=== PATIENT | male | born 1965 ===

== ENCOUNTER 2017-10-13 06:48 | Day surgery (SDC) | payer BC ==
[2017-09-08 09:07] VITALS: BMI 28.8
[2017-10-13] MEDS ORDERED: EPINEPHrine 1:1000 Nasal Sol(30mL) ONE (09:04)
[2017-10-13] MEDS ORDERED: Midazolam 2 MG/2 ML VIAL ONE (10:08)
[2017-10-13] MEDS ORDERED: Propofol 10 mg/ml Inj (20 ML) ONE (10:08)
[2017-10-13] MEDS ORDERED: Lidocaine Hydrochloride 5 ML INJ ONE (10:12)
[2017-10-13] MEDS: ceFAZolin 1 gm in NS 2 GM/200 ML BAG IVPB ONE ×2 (10:21→10:55)
[2017-10-13] MEDS ORDERED: Neostigmine Methylsulfate 3mg/3ml Syringe IV ONE (12:50)
[2017-10-13] MEDS: HYDROmorphone 0.5 mg/0.5 ml ISec IVP PRN ×5 (13:13→14:42)
[2017-10-13] MEDS ORDERED: HYDROmorphone 1 mg/ml ISec IVP STA (13:15)
[2017-10-13] MEDS ORDERED: Lactated Ringer's 1,000 ML IV ONE ×2 (13:18)
[2017-10-13] MEDS ORDERED: Bupivacaine HCl 0.25% PF (30 ml) Inj ONE (13:24)
--- NOTE | 2017-10-13 13:55 | PCM.ANESB7 ---
Adductor Canal Block - Adductor Canal Block Date of Procedure: 10/13/17 Anesthiologist: Pre-Procedure Diagnosis: right mesicinous tear Post-Procedure Diagnosis: right knee arthroscopy with mesicinous tear repair Procedure Performed: Adductor Canal Block Right - Procedure Adductor Canal Block: The procedure was explained to the patient that it is for the post-operative pain management. Consent was obtained after a thorough discussion with the patient regarding the benefits and possible complications of local anesthetic adductor canal block of the femoral nerve. Standard monitors, as defined by the ASA, were applied to the patient. Time-out was held with the circulating nurse to confirm the appropriate block. After applying supplemental oxygen and administering IV Sedation as needed, the patient was placed in supine position with and the operative leg was flexed slightly at the knee and externally rotated as needed, and was kept anatomically stable. The mid-thigh of the _ right lower extremity was exposed. The ultrasound transducer was then applied transversely along the medial aspect, about midway down the thigh and the femoral artery and vein were identified in appropriate relation with the sartorius muscle. At this time, the femoral nerve was visualized lateral to the femoral artery within the canal. After thorough identification, this area area was prepped with Chloroprep solution three times and 1 % Lidocaine was injected subcutaneously for topical anesthesia. At this point, a #22 gauge Stimuplex 4-inch needle was inserted in-plane in a [id number] orientation, and advanced toward the femoral nerve. Advancement was performed carefully under direct ultrasound visualization. Nerve stimulator was used and appropriate muscle twitch was obtained at current of MA. After negative aspiration, __25___cc of _.25____% ___bupivacaine____ was injected and this was followed with cc of % ____ . Under ultrasound guidance the local anesthetics were observed spreading around the femoral nerve. The needle was removed intact and sterile dressing was applied. The patient had stable vital signs, was conscious and in no apparent distress. The patient tolerated the femoral nerve block well with stable vital signs and was prepared for subsequent surgery
[2017-10-13 16:25] VITALS: RESP 18
[2017-10-13 17:26] VITALS: BP 122/67; PULSE 79; TEMP 97.6; O2SAT 98
--- NOTE | 2017-10-18 19:26 | PCM.SURG1 ---
Surgeon's Initial Post Op Note - Surgeon's Notes Surgeon: Florin De León MD [employer] Farmworker: Merna Escalante PA-C Type of Anesthesia: General Endo Pre-Operative Diagnosis: Right knee. #1 medial meniscal tear. #2 lateral meniscal tear. #3 chondromalacia. #4 synovitis. #5 hypertrophic/inflammed fat pad. #6 symptomatic medial plica band Operative Findings: Right knee. #1 medial meniscal tear (peripheral red-red zone tear). #2 lateral meniscal tear (large anterior horn flap tear/ hypermobility posterior horn). 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 #4 synovitis all 3 compartments. #5 hypertrophic/inflammed fat pad casuing impingement. #6 symptomatic medial plica band Post-Operative Diagnosis: Right knee. #1 medial meniscal tear (peripheral red- red zone tear). #2 lateral meniscal tear (large anterior horn flap tear/ hypermobility posterior horn). 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 #4 synovitis all 3 compartments. #5 hypertrophic/inflammed fat pad casuing impingement. #6 symptomatic medial plica band Operation Performed: Right knee arthroscopic: #1 all inside medial meniscal repair. #2 partial lateral menisectomy w/ stabilization posterior horn. #3 microfracture full thickness focal cartilage defects MFC/lateral plateau/ trochlea. #4 extensive synovectomy (including resection symptomatic plica band / resection hypertrophic fat pad). #5 chondroplasty patella. #6 PRP intra- articular injection Specimen/Specimens Removed: specimen= none. complications= none. tourniquet time= 0min. implants = [employer] all inside meniscal repair system, 8 implants for all inside medial meniscal repair (2 kits), 12 implants for lateral meniscus stabilization (4 kits opened) Estimated Blood Loss: EBL {In ML}: 3 Blood Products Given: N/A Drains Used: No Drains Post-Op Condition: Good Date of Surgery/Procedure: 10/13/17 Time of Surgery/Procedure: 13:00
--- NOTE | 2017-10-23 04:01 | OP ---
PROCEDURE DATE: 10/13/2017 PREOPERATIVE DIAGNOSES: Right knee: 1. Medial meniscal tear. 2. Lateral meniscus tear. 3. Chondromalacia. 4. Synovitis. 5. Hypertrophic/inflamed fat pad. 6. Symptomatic medial plica band. POSTOPERATIVE DIAGNOSES: Right knee: 1. Medial meniscal tear (peripheral red-red zone tear). 2. Lateral meniscus tear (large anterior horn flap tear, irreparable/hypermobility of posterior horn/peripheral tear). 3. Chondromalacia with grade 4 focal cartilage loss medial femoral condyle measuring 3 mm x 12 mm/lateral tibial plateau defect measuring 6 mm x 6 mm/trochlea defect measuring 2 mm x 9 mm). 4. Synovitis, all 3 compartments. 5. Hypertrophic/inflamed fat pad causing impingement. 6. Symptomatic medial plica band. PROCEDURES: Right knee arthroscopic: 1. All-inside medial meniscus repair. 2. Partial lateral meniscectomy with stabilization of posterior horn. 3. Microfracture full thickness focal cartilage defects, medial femoral condyle/lateral tibial plateau/trochlea. 4. Extensive synovectomy of all 3 compartments (including resection of symptomatic plica band/resection and debridement of hypertrophic fat pad causing impingement/synovectomy). 5. Chondroplasty patella. 6. Intra-articular PRP injection. SURGEON: Florin Thompson MD MANAGER RAIL: Merna Escalante PA-C JUSTIFICATION FOR MANAGER RAIL: Merna Escalante is a certified physician clinical assistant whose skilled surgical services was an absolute necessity for successful completion of the procedure as he provided skilled surgical assistance with positioning of the patient, positioning of extremity, management of the surgical bridges, retraction of the neurovascular structures, facilitating all-inside medial meniscus repair, facilitating all-inside stabilization of lateral meniscus, facilitating microfracture hole placement and debridement, handling of arthroscopic equipment and synovectomy chondroplasty, wound closure, fitting and placement of postop hinge knee brace. Merna Escalante was present for the entire case and was an absolute necessity for the successful completion of the procedure. TYPE OF ANESTHESIA: General endotracheal anesthesia with a postop regional nerve block placed by anesthesia staff in PACU. SPECIMENS: None. COMPLICATIONS: None. TOURNIQUET TIME: Zero minute. IMPLANTS: [employer] all-inside meniscal repair system with placement of 8 implants for all-inside medial meniscus repair (2 kits), 12 implants for lateral meniscus stabilization (4 kits). ESTIMATED BLOOD LOSS: 3 mL. DRAINS: None. COMPLICATIONS: None. DISPOSITION: The patient was extubated and transferred to PACU in stable condition and tolerated the procedure well. INDICATIONS FOR SURGERY: The patient is a 52-year-old male with a past medical history significant for ADHD, DAWSON, CHF who presented to the office for the first time under my care on 07/04/2017 with right knee pain that was a significant negative impact on his quality of life, ability to work, and performing ADLs. On initial evaluation in the office, he did undergo x-rays that were weightbearing that showed no loss of joint space and no evidence of significant DJD. He underwent MRI of the right knee done at [facility] on 08/09/2017, which was read as: 1. Horizontal tear of posterior horn and body of medial meniscus. 2. Complex tear of anterior horn and body of lateral meniscus. 3. Grade 2 sprain ACL, grade 1 sprain MCL. 4. Moderate prepatellar bursitis and swelling. 5. [id number] tricompartmental articular chondrosis. 6. Hytzs-np-gztulmoe joint effusion. We started conservative treatment in the form of Neoprene hinged knee brace, cortisone mixture injection, physical therapy, anti-inflammatory medication in the form of Mobic, anti-inflammatory compound cream. The cortisone mixture injection provided him with near complete resolution of pain that lasted only 4 weeks. During that period of time, he was able to return to full function and sports activities as well as no difficulties at work. 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 I reviewed the MRI findings with him, and I reviewed how he was progressing with physical therapy and conservative treatment. His pain had returned to baseline levels within 4 weeks after the first cortisone injection, and physical therapy was making his pain worse. He was unable to perform any activities or ADLs without the hinged knee brace in place. We discussed potential repeat cortisone mixture injection versus surgical intervention. He was indicted for right knee arthroscopic medial meniscal repair versus partial meniscectomy, lateral meniscus repair versus partial lateral meniscectomy, synovectomy and all related indicated procedures including chondroplasty and microfracture if indicated. The risks, benefits and alternatives of the procedure were discussed at length with the patient with the risks including but not limited to infection, neurovascular damage, need for further surgery, failure of repair, failure of implants, inability to return to preinjury level of activity and function, development of blood clots including DVT and PE, development of chronic pain and disability, chondrolysis and accelerated degenerative wear, iatrogenic injury, anesthesia reactions including . After answering all of the questions, he stated that he understood the risks and wished to proceed with surgery. He watched surgical animation videos and diagnosis animation videos and stated that he had a good understanding of his diagnosis as well as the proposed surgical intervention. I reviewed at length with him the postop rehabilitation protocol after surgery, and he stated that he understood the need for compliance with the rehab protocol in order to maximize the chance of having successful outcome after surgery. He was referred to his primary care physician for preadmission testing and preoperative medical clearance for surgery. During his evaluation, he was diagnosed with previously undiagnosed CHF with an ejection fraction of 35% from the left ventricle. 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 Once we obtained our medical and cardiac clearances, he was scheduled for surgery at [facility] on 10/13/2017. PROCEDURE IN DETAIL: The patient was identified in the preoperative holding area, and the right knee was marked for surgery. Once again as described above, the risks, benefits, and alternatives of the procedure were discussed at length with the patient, and informed consent was obtained. After a brief discussion with anesthesia staff, perioperative IV antibiotics in the form of 2 gm of Ancef were administered. The patient was taken to the operating room, placed in a well-padded operating room table, with all bony prominences and superficial neurovascular structures well-padded. General anesthesia was administered without any difficulty or complication. Examination under anesthesia was then carried out. EXAMINATION UNDER ANESTHESIA: Right knee with full range of motion compared to contralateral knee, significant reproducible evidence of medical plica band abutting the inferomedial aspect of the patella during range of motion at 30 degrees flexion reproducible, no evidence of instability with negative anterior drawer, negative posterior drawer, negative Carmen, negative reverse Carmen, negative pivot shift, negative reverse pivot shift, negative opening to medial or lateral joint lines at 0 or 30 degrees varus or valgus stress, negative posterolateral corner drawer, negative recurvatum. Patella with normal tracking, no evidence of significant instability, no evidence of J-sign. As I stated above, reproducible click palpated and visualized at the inferomedial aspect of the patella representing a symptomatic medical plica band that was identified during his office visit as well. Final time-out was done with the surgeon, anesthesia staff, OR staff, confirming the patient, surgeon, extremity being operated on and procedure being done. The right knee was prepped and draped in standard sterile fashion. Tourniquet had been placed high on the right thigh, but never inflated. The knee joint was then insufflated with 50 mL of normal saline. Anterolateral portal was created with stab incision through skin down subcutaneous tissue down to the level of the capsule. Blunt arthroscopic trocar and cannula were inserted into through suprapatellar pouch. The arthroscopic camera was then inserted. Insufflation with arthroscopic fluid was begun. With the use of spinal needle localization, anteromedial portal was created. Blunt arthroscopic accessory cannula was inserted through anteromedial portal, and the knee joint was copiously irrigated for better visualization and removal of synovial debris. With the use of an arthroscopic probe, a diagnostic arthroscopy was then started. DIAGNOSTIC ARTHROSCOPY: We directed our attention to the suprapatellar pouch first. There was no evidence of adhesions or loose bodies. We then turned our attention to the patellofemoral joint, which revealed a patella that was well seated within the trochlea with no evidence of instability. The patella cartilaginous surface along its inferomedial lateral facet had grade 2-3 chondromalacia with no full thickness defect seen. The trochlea had a full thickness defect grade 3-4 chondromalacia at its central aspect measuring 2 mm in width by 9 mm in length that would be a site of future microfracture, medial gutter exhibited a hypertrophic band of tissue representing a thickened plica band extending from the inferomedial aspect of the patella to the medial retinaculum that did appear to indeed by symptomatic, causing cartilaginous changes at the corresponding area of friction at the medial femoral condyle medial aspect. Attention was then turned towards the medial compartment where immediately seen at the medial femoral condyle weightbearing zone at its lateral aspect towards the intercondylar notch was a full thickness cartilage defect measuring 3 mm in width by 12 mm in length as a deep groove with exposed subchondral bone and overlying unstable cartilage flaps. The medial meniscus was carefully evaluated with the use of arthroscopic probe and revealed a peripheral red-red zone meniscal tear with meniscal capsular separation resulting hypermobility of the medial meniscus. This was a complete tear measuring greater than 2 cm at the posteromedial aspect of the posterior medial capsule and meniscus junction. Attention was then turned towards the intercondylar notch where intact ACL and PCL were seen. Attention was then turned towards the lateral compartment where immediately seen was a large flap tear of the lateral meniscus anterior horn with complex tearing. This was a horizontal split tear of the anterior horn of the lateral meniscus with a resulting flap component that appeared to be impinging on the anterior aspect of the knee joint during extension would explain his pain at the anterolateral aspect of his knee with extension. The posterior horn of the lateral meniscus also exhibited a red-red zone injury with hypermobility and peripheral detachment. The anterior horn tear of the lateral meniscus was not repairable, but the hypermobility of the posterior horn was indeed repairable with good quality tissue. The lateral tibial plateau had a zone of full thickness cartilage injury measuring 6 mm x 6 mm at its most medial aspect at the weightbearing zone. The lateral femoral condyle did not exhibit any cartilage injury. CONTINUATION OF PROCEDURE: ARTHROSCOPIC PARTIAL LATERAL MENISCECTOMY AND STABILIZATION: As stated before, the anterior horn injury to the lateral meniscus resulted in a large flap tear component that was not repairable with poor quality complex tearing tissue. With the use of the arthroscopic shaver, radiofrequency ablation, meniscal biters, a partial lateral meniscectomy of the anterior horn irreparable tissue was carried out successfully. This resulted in resection of the least amount of tissue possible, and we took care to preserve as much of the meniscus as possible. In the end, approximately 50% of the anterior horn of the lateral meniscus was debrided and resected translating to 25% of the overall lateral meniscus tissue being removed. Once this was completed to satisfaction, a smooth contour was established. There was a peripheral zone of injury at the mid body to posterior horn of the lateral meniscus representing a red-red zone injury that was amenable to repair. This also appeared as a possible area of propagation of the tearing from the anterior horn extending to the posterior horn and involving the rest of the lateral meniscus. With the use of the [employer]vatec all-inside meniscal repair system, an all-inside repair was carried out starting at the junction of the injury zone to the non-injury zone of the posterior mid body and posterior horn. Four implants were placed with good capsular sided fixation achieved resulting in alternating horizontal and vertical mattress sutures being placed at the junction of the injured and non-injured mid body lateral meniscus. This would function as a ripstop to preserve the remaining uninjured lateral meniscus tissue. The posterior horn exhibited some meniscal capsular separation as well resulting in hypermobility and to treat this portion of the injury. Eight more implants were placed at the posterior horn with good capsular sided fixation resulting in placement of alternating horizontal and vertical mattress sutures, 6 in total. The repair construct was carefully evaluated, and indeed our goal of stabilizing and preserving the remaining lateral meniscus was successful. Attention was then turned towards the medial compartment. As stated before, the medial meniscus exhibited a red-red zone peripheral detachment at the posteromedial capsule. Four implants were placed on the superior aspect of this junction reducing the posterior medial meniscus to the posteromedial capsule, facilitating a successful all-inside repair. This resulted in placement of 3 alternating vertical and horizontal mattress sutures with 4 implants with good capsular sided fixation. This steps were then repeated at the posterior horn undersurface to balance the hoop stresses and strengthen the repair with placement of 8 implants overall for the all-inside medial meniscus repair. Once all meniscus treatment was completed to satisfaction, attention was then turned towards cartilage surface treatment. ARTHROSCOPIC MICROFRACTURE/CARTILAGE REPAIR: With the use of the curette, we turned our attention to the full thickness cartilage defect of the lateral plateau first. Microfracture awls were then used to create microfracture holes to allow for fibrocartilage healing of the full thickness defect of the lateral tibial plateau measuring 6 mm x 6 mm. A stable rim of cartilage was created with the curette, and then microfracture awl was used to create the microfracture holes. These steps were then repeated for the medial femoral condyle 12 mm x 3 mm width zone of injury that was full thickness as well with good bloody return established and placement of good microfracture hole spacing and placement. These steps were repeated again for the trochlea zone of injury measuring 2 mm x 9 mm in length. Once all microfracture/joint preservation treatment was completed, we then turned our attention to the chondroplasty. ARTHROSCOPIC CHONDROPLASTY PATELLA: With the use of arthroscopic shaver and radiofrequency ablation, a chondroplasty of the patella grade 2-3 zone of cartilage injury was carried out establishing a smooth contour and removing the unstable fibrillated cartilage flaps. Once this was carried out to satisfaction, attention was then turned towards to the extensive synovectomy and debridement. ARTHROSCOPIC EXTENSIVE SYNOVECTOMY AND DEBRIDEMENT: With the use of arthroscopic shaver and radiofrequency ablation, an extensive synovectomy of all 3 compartments was carried out removing the inflamed synovitis tissue from all 3 compartments. We then proceeded to debride and resect the hypertrophic inflamed fat pad causing anterior impingement. This was done with use of arthroscopic shaver and radiofrequency ablation while maintaining good hemostasis. As stated before, there was a thickened hypertrophic symptomatic medical plica band. This was resected successfully with the use of arthroscopic shaver and radiofrequency ablation, removing all the mechanical symptomatic plica tissue. Once all inflamed offending and impinging tissue was resected and debrided and good hemostasis was achieved, we then turned our attention to taking final arthroscopic pictures. Essentially, a partial lateral meniscectomy had been completed and stabilized, all-inside medial meniscal repair was visualized and found to be stable, joint preservation technique to repair damaged cartilage was evaluated and final pictures were taken, all inflamed synovial tissues were resected as well. All arthroscopic fluid and debris were then removed from the knee joint. INTRA-ARTICULAR PRP INJECTION: With the help of anesthesia staff, 7 mL of PRP were obtained after a peripheral venous stick of blood was spun in the centrifuge from [employer] and yielding 7 mL of PRP. The PRP was injected under direct visualization intra-articular to aid in healing of the meniscus repairs. Wounds were reapproximated with 2-0 Vicryl sutures for deep tissue followed by 3-0 Monocryl suture for skin. Sterile dressings were applied followed by a layer of sterile cast padding from the toes up to the superior thigh followed by a layer of compressive HANNAH wrap from the toes up to the superior thigh. Postop hinged knee brace provided by my office was then fitted and placed on the patient and locked in 0 degrees extension. The patient was then extubated and transferred to PACU in stable condition and tolerated the procedure well. JUSTIFICATION FOR CODING AND BILLIN. An all-inside medial meniscal repair was carried out successfully and therefore coded and billed. 2. Partial lateral meniscectomy was carried out successfully, and the remaining posterior horn tissue was stabilized employing good joint preservation technique with an equivalent all-inside repair. The goal of our treatment was the partial lateral meniscectomy to reduce his pain and remove the offending meniscal tissue with a secondary goal of preserving the lateral meniscus tissue that remained. Therefore, a partial lateral meniscectomy was coded and billed. 3. Microfracture was carried out to the full thickness cartilage defect of the lateral tibial plateau, medial femoral condyle, trochlea successfully. Therefore, microfracture was coded and billed independently. 4. Chondroplasty of patella was carried out what appears to be inclusive to the microfracture code and therefore was not coded and billed as the chondroplasty of patella occurred in the same compartment as the microfracture of the trochlea. 5. An extensive synovectomy was carried out beyond with its usual and customary for visualization during arthroscopic procedure. An extended amount of surgical time was dedicated towards the extensive 3-compartment synovectomy as well as the resection of the hypertrophic fat pad and resection of the symptomatic plica band. Therefore, as a dedicated part of the procedure, beyond with its usual and customary, an synovectomy was coded and billed. 6. A PRP injection was placed intraarticularly at the end of the case to aid with healing and therefore was coded and billed. 7. A postop hinged knee brace provided by my office was fitted and placed on the patient at the end of the case to maximize the chances of successful healing and to protect the surgery, being the meniscus repairs. The brace was placed out of medical necessity at the end of the procedure provided by my office and therefore was coded and billed. DISPOSITION: The patient will be discharged to home once he has recovered from anesthesia. He has been given a prescription for Percocet for pain control. He has been given a prescription for Lovenox to start DVT prophylaxis, postoperative day #1 for 2 weeks daily 40 mg subcutaneous injection. He was instructed to keep the dressings clean, dry and intact. He will be strict nonweightbearing to the right lower extremity to protect the microfracture, joint preservation treatment portion of the case. He will start physical therapy immediately. He will follow up in my office within 1 week and already has his postoperative appointment setup. Florin De León MD
== END 2017-10-13 17:20 | disposition home or self-care (01) ==
LOC: C.SDS 06:48
PROVIDERS: ATTEND Student in an Organized Health Care Education/Training Program
DX: S83.231D Complex tear of medial meniscus, current injury, right knee, subsequent encounter (principal); S83.271D Complex tear of lateral meniscus, current injury, right knee, subsequent encounter; M94.261 Chondromalacia, right knee; M67.861 Other specified disorders of synovium, right knee
CPT/HCPCS: 29875; 29881; 97116; 97161; C1751; G8978; G8979; G8980; J0690; J1170; J2250; J2405; J2704; J2710; J3010; J7120